=== PATIENT | male | born 1970 | race Caucasian/White ===

== ENCOUNTER 2017-11-16 22:38 | Emergency (ER) | payer BC ==
[2017-11-16] MEDS ORDERED: Sodium Chloride 0.9% 1000 ML 1,000 ML IV STA ×2 (23:03→23:59)
--- NOTE | 2017-11-16 23:08 | ERPHSYRPT ---
- History of Present Illness Time Seen by Provider: 11/16/17 23:05 Source: patient Exam Limitations: no limitations Patient Subjective Stated Complaint: fever , vomiting, cough, diarrhea since yesterday Triage Nursing Assessment: alert and appears ill. sore throat that hurt when swallowing skin hot to ouch. cough that he states is productive and white phlegm. congested cough. abdomen soft and + BS Physician History: 47-year-old white male previously healthy arrives with complaint of cough sore throat nausea, diarrhea, abdominal pain, fever, symptoms since yesterday. Past medical history patient denies for now he denies past surgical history patient denies.. Timing/Duration: yesterday Severity: moderate Modifying Factors: Worsens With: immobilization, medication, movement, rest, acetaminophen, ibuprofen, nothing Associated Symptoms: nausea, abdominal pain, cough, fever, malaise, No vomiting , No shortness of breath, No heartburn, No diaphoresis, No chills, No chest pain , No headaches, No loss of appetite, No syncope, No seizure Allergies/Adverse Reactions: No Known Drug Allergies Allergy (Verified 11/16/17 23:08) Home Medications: Finasteride [Finasteride] 1 mg PO DAILY 11/16/17 [History] Immunizations Up to Date: Yes - Review of Systems Constitutional: Fever, Malaise, No Chills, No Fatigue, No Lethargy, No Night Sweats, No Weakness, No Weight Loss Eyes: No Symptoms Ears, Nose, & Throat: No Symptoms Respiratory: No Cough, No Dyspnea Cardiac: No Chest Pain, No Edema, No Syncope Abdominal/Gastrointestinal: Abdominal Pain, Nausea, Diarrhea, No Vomiting Genitourinary Symptoms: No Dysuria Musculoskeletal: No Back Pain, No Neck Pain Skin: No Symptoms, No Rash Neurological: No Dizziness, No Focal Weakness, No Sensory Changes Psychological: No Symptoms Endocrine: No Symptoms All Other Systems: Reviewed and Negative - Past Medical History Pertinent Past Medical History: No - Past Surgical History Past Surgical History: No - Social History Smoking Status: Never smoker Exposure to second hand smoke: No Drug Use: none Patient Lives Alone: No - Nursing Vital Signs Nursing Vital Signs: Initial Vital Signs Temperature 100.6 F 11/16/17 22:51 Pulse Rate 111 H 11/16/17 22:51 Respiratory Rate 18 11/16/17 22:51 Blood Pressure 141/111 11/16/17 22:51 O2 Sat by Pulse Oximetry 96 11/16/17 22:51 Pain Scale Pain Intensity 4 - Physical Exam General Appearance: other (well-developed well-nourished white male pale in appearance alert oriented 3) Eye Exam: PERRL/EOMI, eyes nml inspection Ears, Nose, Throat Exam: normal ENT inspection, TMs normal, pharynx normal, moist mucous membranes Neck Exam: normal inspection, non-tender, supple, full range of motion Respiratory Exam: normal breath sounds, lungs clear, No respiratory distress Cardiovascular Exam: normal heart sounds, tachycardia, capillary refill <2 sec Gastrointestinal/Abdomen Exam: soft, normal bowel sounds, tenderness (mild diffuse tenderness) Back Exam: normal inspection, normal range of motion, No CVA tenderness, No vertebral tenderness Extremity Exam: normal inspection, normal range of motion, pelvis stable Neurologic Exam: alert, oriented x 3, cooperative, normal mood/affect, nml cerebellar function, nml station & gait, sensation nml, No motor deficits Skin Exam: normal color, warm, dry, No rash Lymphatic Exam: No adenopathy SpO2 Interpretation: normal (The looks of the of the96%) SpO2: 96 - Course Nursing assessment & vital signs reviewed: Yes - Radiology Exams Chest X-ray Interpretation: Interpreted by me, Other (no acute disease process) Ordered Tests: Active Orders 24 hr Category Date Time Status IV Insertion STAT Care 11/16/17 23:03 Active CHEST 1 VIEW (PORTABLE) Stat Exams 11/16/17 23:04 Taken AMYLASE Stat Lab 11/16/17 23:10 Completed CBC W DIFF Stat Lab 11/16/17 23:10 Completed CMP Stat Lab 11/16/17 23:10 Completed CULTURE, THROAT Stat Lab 11/16/17 23:10 Received LIPASE Stat Lab 11/16/17 23:10 Completed Lactic Acid Stat Lab 11/16/17 23:35 Results STREP SCREEN-BETA A Stat Lab 11/16/17 23:10 Completed Medication Summary Generic Name Dose Route Start Last Admin Trade Name Freq PRN Reason Stop Dose Admin Sodium Chloride 1,000 mls @ 999 mls/hr 11/16/17 23:59 Sodium Chloride 0.9% 1000 Ml IV 11/17/17 00:59 .Q1H1M STA Discontinued Medications Generic Name Dose Route Start Last Admin Trade Name Freq PRN Reason Stop Dose Admin Hydrocodone Bitart/Acetaminophen 1 tab 11/17/17 00:03 [place] 5/325 Mg PO 11/17/17 00:04 STAT ONE Hydrocodone Bitart/Acetaminophen Confirm 11/17/17 00:14 [place] 5/325 Mg Administered 11/17/17 00:15 Dose 1 tab .ROUTE .STK-MED ONE Sodium Chloride 1,000 mls @ 999 mls/hr 11/16/17 23:03 11/16/17 23:16 Sodium Chloride 0.9% 1000 Ml IV 11/17/17 00:03 999 mls/hr .Q1H1M STA Administration Sodium Chloride Confirm 11/16/17 23:13 Sodium Chloride 0.9% 1000 Ml Administered 11/16/17 23:14 Dose 1,000 mls @ ud .ROUTE .STK-MED ONE Sodium Chloride Confirm 11/17/17 00:14 Sodium Chloride 0.9% 1000 Ml Administered 11/17/17 00:15 Dose 1,000 mls @ ud .ROUTE .STK-MED ONE Oseltamivir Phosphate 75 mg 11/17/17 00:03 Tamiflu 75mg Capsule PO 11/17/17 00:04 STAT ONE Oseltamivir Phosphate Confirm 11/17/17 00:14 Tamiflu 75mg Capsule Administered 11/17/17 00:15 Dose 75 mg PO .STK-MED ONE Lab/Rad Data: Laboratory Result Diagrams 11/16/17 23:10 11/16/17 23:10 Laboratory Results 11/16/17 11/16/17 11/16/17 Range/Units 23:35 23:10 23:10 WBC (4.0-10.5) K/mm3 RBC (4.1-5.6) M/mm3 Hgb (12.5-18.0) gm/dl Hct (42-50) % MCV (78-100) fl MCH (26-32) pg MCHC (32-36) g/dl RDW (11.5-14.0) % Plt Count (150-450) K/mm3 MPV (6-9.5) fl Gran % (36.0-66.0) % Lymphocytes % (24.0-44.0) % Monocytes % (0.0-12.0) % Eosinophils % (0.00-5.0) % Basophils % (0.0-0.4) % Basophils # (0-0.4) Sodium (136-145) mEq/L Potassium (3.5-5.1) mEq/L Chloride (98-107) mEq/L Carbon Dioxide (21-32) mEq/L Anion Gap (5-15) MEQ/L BUN (9-20) mg/dL Creatinine (0.55-1.30) mg/dl Estimated GFR ML/MIN Glucose (70-110) MG/DL Lactic Acid 1.9 (0.4-2.0) Calcium (8.5-10.1) mg/dL Total Bilirubin (0.2-1.0) mg/dL AST (15-37) U/L ALT (12-78) U/L Alkaline Phosphatase (46-116) U/L Serum Total Protein (6.4-8.2) gm/dL Albumin (3.4-5.0) g/dL Amylase (25-115) U/L Lipase (73-393) U/L Influenza Type A Ag POSITIVE (NEGATIVE) Influenza Type B Ag NEGATIVE (NEGATIVE) RSV (PCR) NEGATIVE (Negative) Streptococcus Screen NEGATIVE (Negative) 11/16/17 11/16/17 Range/Units 23:10 23:10 WBC 7.4 (4.0-10.5) K/mm3 RBC 4.63 (4.1-5.6) M/mm3 Hgb 13.7 (12.5-18.0) gm/dl Hct 41.3 L (42-50) % MCV 89.2 (78-100) fl MCH 29.6 (26-32) pg MCHC 33.2 (32-36) g/dl RDW 13.7 (11.5-14.0) % Plt Count 198 (150-450) K/mm3 MPV 10.0 H (6-9.5) fl Gran % 78.9 H (36.0-66.0) % Lymphocytes % 9.0 L (24.0-44.0) % Monocytes % 8.9 (0.0-12.0) % Eosinophils % 2.7 (0.00-5.0) % Basophils % 0.5 (0.0-0.4) % Basophils # 0.04 (0-0.4) Sodium 139 (136-145) mEq/L Potassium 3.7 (3.5-5.1) mEq/L Chloride 105 (98-107) mEq/L Carbon Dioxide 23.4 (21-32) mEq/L Anion Gap 14.6 (5-15) MEQ/L BUN 8 L (9-20) mg/dL Creatinine 1.24 (0.55-1.30) mg/dl Estimated GFR > 60 ML/MIN Glucose 137 H (70-110) MG/DL Lactic Acid (0.4-2.0) Calcium 8.4 L (8.5-10.1) mg/dL Total Bilirubin 0.50 (0.2-1.0) mg/dL AST 19 (15-37) U/L ALT 34 (12-78) U/L Alkaline Phosphatase 50 (46-116) U/L Serum Total Protein 7.0 (6.4-8.2) gm/dL Albumin 3.8 (3.4-5.0) g/dL Amylase 25 (25-115) U/L Lipase 116 (73-393) U/L Influenza Type A Ag (NEGATIVE) Influenza Type B Ag (NEGATIVE) RSV (PCR) (Negative) Streptococcus Screen (Negative) - Progress Progress: improved Progress Note: 11/17/17 00:04 47-year-old white male arrives with complaint of general malaise sore throat cough abdominal pain diarrhea nausea symptoms since yesterday patient has had a fever. Patient positive for influenza A. Patient's other labs essentially negative. Patient's lactate within normal limits, chest x-ray unremarkable Patient improved in appearance after receiving 1 L of normal saline was given a second liter of normal saline. Will give patient [place] 5/325 one tablet orally Tamiflu 75 mg orally. Will plan to send the patient home. Patient to be on Tamiflu 75 mg orally twice a day for 5 days. Will give him a small amount of [place]. The patient's with similar symptoms since yesterday as well. She states she is not allergic to Tamiflu. She denies any other medical problems Will go ahead and give patient a prescription for Tamiflu as a courtesy 75 mg orally twice a day for 5 days. . 11/17/17 00:19 Patient's vital signs are stable. He has good peripheral perfusion. Labs are essentially normal. Patient has no sign of sepsis. Patient does have influenza. - Departure Time of Disposition: 00:06 Departure Disposition: Home Clinical Impression: Influenza A, Cough Fever Qualifiers: Fever type: unspecified Qualified Code(s): R50.9 - Fever, unspecified Abdominal pain Qualifiers: Abdominal location: generalized Qualified Code(s): R10.84 - Generalized abdominal pain Condition: Fair Critical Care Time: No Instructions: Fever, Adult (DC) Additional Instructions: Return home. Plenty of fluids. Clear fluids only 24-48 hours if abdominal pain Tamiflu 75 mg orally twice a day for 5 days. [place] 5/325 #12 one orally every 4-6 hours as needed for pain. Tylenol every 4-6 hours as needed for pain or temperature greater than 100.5 ( do not double up Tylenol with Tylenol which is included in your [place]) Follow-up with your family doctor if symptoms are worse, no better in 48 hours or persist longer than 72 hours. Return for acute distress or for severe symptoms. Prescriptions: Hydrocodone/Acetaminophen [[place] 5-325 Tablet] 1 tab PO Q4-6HPRN PRN #12 tablet MDD 6 tablets PRN Reason: Pain Oseltamivir 75 mg [Tamiflu 75MG Capsule] 75 mg PO BID #10 cap
[2017-11-16] MEDS ORDERED: Sodium Chloride 0.9% 1000 ML 1,000 ML ONE (23:13)
[2017-11-16 23:20] LABS: BASOPHIL % 0.5 % (0.0-0.4); Basophil (Absolute #) 0.04 (0-0.4); Eosinophil % 2.7 % (0.00-5.0); Granulocyte Absolute (ANC) 5.87 (1.4-6.9); Granulocytes % 78.9 % (36.0-66.0); Hematocrit 41.3 % (42-50); Hemoglobin 13.7 gm/dl (12.5-18.0); Lymphocyte (Absolute #) 0.67 (1.0-4.6); Mean Cell Volume 89.2 fl (78-100); Mean Corpuscular Hemoglobin 29.6 pg (26-32); Mean Corpuscular Hgb Concent. 33.2 g/dl (32-36); Monocyte (Absolute #) 0.66 (0.0-1.3); Monocytes % 8.9 % (0.0-12.0); Platelet Count 198 K/mm3 (150-450); Red Blood Count 4.63 M/mm3 (4.1-5.6); Red Cell Distribution Width 13.7 % (11.5-14.0); White Blood Count 7.4 K/mm3 (4.0-10.5)
[2017-11-16 23:41] LABS: ALBUMIN 3.8 g/dL (3.4-5.0); ALKALINE PHOSPHATASE 50 U/L (46-116); AMYLASE 25 U/L (25-115); ANION GAP 14.6 MEQ/L (5-15); BLOOD UREA NITROGEN 8 mg/dL (9-20); CHLORIDE 105 mEq/L (98-107); Calcium 8.4 mg/dL (8.5-10.1); Carbon Dioxide 23.4 mEq/L (21-32); Creatinine 1 1.24 mg/dl (0.55-1.30); EST GLOMERULAR FILTRATION RATE > 60 ML/MIN; Glucose 137 MG/DL (70-110); LIPASE 116 U/L (73-393); Potassium 3.7 mEq/L (3.5-5.1); SGOT/AST 19 U/L (15-37); SGPT/ALT 34 U/L (12-78); SODIUM 139 mEq/L (136-145)
[2017-11-16 23:42] LABS: Lactic Acid 1.9 (0.4-2.0)
[2017-11-16 23:51] LABS: INFLUENZA A POSITIVE (NEGATIVE); INFLUENZA B NEGATIVE (NEGATIVE); RESPIRATORY SYNCTIAL VIRUS NEGATIVE (Negative)
[2017-11-17] MEDS ORDERED: NORCO 5/325 MG PO ONE (00:03)
[2017-11-17] MEDS ORDERED: Tamiflu 75MG Capsule PO ONE ×2 (00:03→00:14)
[2017-11-17] MEDS ORDERED: Sodium Chloride 0.9% 1000 ML 0 ML ONE (00:14)
[2017-11-17] MEDS ORDERED: NORCO 5/325 MG ONE (00:14)
[2017-11-17 00:35] VITALS: BP 126/78; PULSE 88; O2SAT 97
--- NOTE | 2017-11-17 09:07 | XRAY ---
Indication: Cough. Comparison: August 20, 2014. Portable chest again demonstrates normal heart, lungs, and bony thorax.
== END 2017-11-17 00:35 | disposition home or self-care (01) ==
LOC: ED 22:38
DX: J10.1 Influenza due to other identified influenza virus with other respiratory manifestations (principal); R05 Cough; R10.84 Generalized abdominal pain
CPT/HCPCS: 36000; 36415; 71045; 80053; 82150; 83605; 83690; 85025; 87070; 87430; 87631; 96360; 99283; 99284; A9270-GY